=== PATIENT | male | born 2000 | race Caucasian/White ===

== ENCOUNTER → 2021-11-24 | Outpatient (CLI) | payer BC ==
--- NOTE | 2021-11-25 09:53 | KCIC ---
EXAMINATION: MRI RIGHT HAND WITHOUT IV CONTRAST CLINICAL HISTORY: RIGHT HAND PAIN. INJURY TO RIGHT 3RD MCP JOINT 6 WEEKS AGO, STRUCK HAND ON TABLE. E martin for sag band rupture vs UCL tear at the MCP joint. TECHNIQUE: Multiplanar multisequential images obtained through the hand with attention to the long fi nger without intravenous contrast . COMPARISON: None FINDINGS: No evidence of acute fracture or suspicious marrow replacing process. Joint alignment maintained. No joint effusion. Extensor digitorum tendon of the long finger remains intact and centered over the dorsal third metaca rpal head. Ulnar sagittal band at the third metacarpal head is somewhat indistinct with intermediate signal in the expected region of the sagittal band and adjacent soft tissue edema dorsally, suspiciou s for a subtle injury. Radial sagittal band appears grossly intact. Radial and ulnar collateral ligam ents at the third MCP joint appear intact. Remainder of the extensor and flexor tendons within normal limits. Muscles within normal limits. IMPRESSION: Findings suspicious for subtle injury of the ulnar sagittal band at the third metacarpal head as desc ribed. No associated subluxation of the long finger extensor digitorum tendon. Electronically signed by: Luiz Muro DO (11/25/2021 9:50 AM) [id number]
== END ==
LOC: KCIC MRI 13:28
PROVIDERS: ATTEND Physician Assistant
DX: S69.91XA Unspecified injury of right wrist, hand and finger(s), initial encounter (principal); M79.641 Pain in right hand; W22.8XXA Striking against or struck by other objects, initial encounter; Y93.89 Activity, other specified; Y92.89 Other specified places as the place of occurrence of the external cause; Y99.8 Other external cause status
CPT/HCPCS: 73218